=== PATIENT | female | born 1960 | race Hispanic/Latino ===

== ENCOUNTER 2020-01-27 12:29 | Inpatient (IN) | payer MEDICARE ==
[2020-01-27 12:59] LABS: BASOPHILS % (AUTO) 0.3 % (0.0-5.0); EOSINOPHILS % (AUTO) 0.1 % (0.0-8.0); LYMPHOCYTES % (AUTO) 5.6 % (21.0-51.0); MEAN CORPUSCULAR HEMOGLOBIN 34.8 pg (27.0-33.0); MEAN CORPUSCULAR HGB CONC 30.6 g/dL (32.0-36.0); MEAN CORPUSCULAR VOLUME 113.8 fL (79-99); MONOCYTES % (AUTO) 1.1 % (3.0-13.0); NEUTROPHILS % (AUTO) 92.6 % (40.0-77.0); NUCLEATED RED BLOOD CELLS 0.3 % (0.0-0.19); PLATELET COUNT (AUTO) 185 K/uL (130-400); RED BLOOD CELL COUNT(AUTO) 1.38 MIL/uL (4.00-5.50); WHITE BLOOD COUNT (AUTO) 8.8 K/uL (4.8-10.8)
[2020-01-27 13:06] LABS: HEMATOCRIT 15.7 % (36-48)
[2020-01-27] MEDS ORDERED: ALBUTEROL INHALER 90MCG/INH IH ONE (13:12)
[2020-01-27 13:14] LABS: ALBUMIN 1.8 g/dL (3.5-5.0); BILIRUBIN,TOTAL 1.2 mg/dL (0.2-1.0); CREATININE 5.3 mg/dL (0.5-1.5)
[2020-01-27 13:33] LABS: POTASSIUM 6.8 mmol/L (3.5-5.1)
[2020-01-27] MEDS ORDERED: CALCIUM GLUCONATE 1 GM/10 ML VIAL IV ONE (13:38)
[2020-01-27] MEDS ORDERED: SODIUM CHLORIDE 0.9% 100 ML IV ONE (13:39)
[2020-01-27] MEDS ORDERED: ALBUTEROL SULFATE 0.083% 2.5 MG/3 ML INH IH PRN (14:45)
[2020-01-27] MEDS ORDERED: ACETAMINOPHEN 325 MG TAB PO PRN (14:45)
[2020-01-27] MEDS ORDERED: DEXTROSE 50%-WATER 50 ML DISP.SYRIN IV PRN (15:00)
[2020-01-27] MEDS ORDERED: GLUCAGON 1MG KIT 1 MG ML IM PRN (15:00)
[2020-01-27] MEDS ORDERED: ALBUMIN (HUMAN) 25% 100 ML IV ONE (15:32)
[2020-01-27] MEDS ORDERED: ALBUMIN (HUMAN) 25% 0 ML IV ONE (15:37)
[2020-01-27 15:41] LABS: HEMOGLOBIN A1C 5.7 % (4.0-6.0)
[2020-01-27] MEDS ORDERED: SODIUM CHLORIDE 0.9% 50 ML IV ONE (15:49)
[2020-01-27] MEDS: INSULIN HUMULIN R 100 UNIT/ML 3ML SQ SCH ×2 (16:30→21:00)
[2020-01-27] MEDS ORDERED: EPOETIN ALFA 10,000 UNIT/ML VIAL IV NR (18:00)
[2020-01-27 18:11] LABS: BASOPHILS % (AUTO) 0.3 % (0.0-5.0); EOSINOPHILS % (AUTO) 0.2 % (0.0-8.0); LYMPHOCYTES % (AUTO) 5.2 % (21.0-51.0); MEAN CORPUSCULAR HGB CONC 34.3 g/dL (32.0-36.0); MEAN CORPUSCULAR VOLUME 96.2 fL (79-99); MONOCYTES % (AUTO) 3.8 % (3.0-13.0); NUCLEATED RED BLOOD CELLS 0.7 % (0.0-0.19); PLATELET COUNT (AUTO) 107 K/uL (130-400); RED BLOOD CELL COUNT(AUTO) 2.09 MIL/uL (4.00-5.50); RED CELL DISTRIBUTION WIDTH 21.9 % (11.0-15.5); WHITE BLOOD COUNT (AUTO) 6.1 K/uL (4.8-10.8)
[2020-01-27 18:19] LABS: HEMATOCRIT 20.1 % (36-48)
[2020-01-27 18:39] LABS: B-TYPE NATRIURETIC PEPTIDE 2430 pg/mL (0-100)
[2020-01-27] MEDS: FAMOTIDINE 20MG TAB 20 MG TAB PO SCH (21:10)
[2020-01-27 21:31] LABS: HEMATOCRIT 23.3 % (36-48)
--- NOTE | 2020-01-27 22:24 | NUR ---
Patient received from ED at start of shift, accompanied by staff to room 309. Patient assisted assisted to bed and made comfortable. Assessment and nursing data base completed. No acute distress at this time. Will continue to monitor.
[2020-01-28 03:57] VITALS: BP 87/56
[2020-01-28 04:51] LABS: HEMATOCRIT 22.6 % (36-48)
[2020-01-28] MEDS: INSULIN HUMULIN R 100 UNIT/ML 3ML SQ SCH ×2 (07:30→11:30)
[2020-01-28 08:14] VITALS: BP 89/53
[2020-01-28 09:07] LABS: HEMATOCRIT 24.7 % (36-48); MEAN CORPUSCULAR HEMOGLOBIN 33.1 pg (27.0-33.0); MEAN CORPUSCULAR HGB CONC 33.2 g/dL (32.0-36.0); MEAN CORPUSCULAR VOLUME 99.6 fL (79-99); NUCLEATED RED BLOOD CELLS 1.1 % (0.0-0.19); RED BLOOD CELL COUNT(AUTO) 2.48 MIL/uL (4.00-5.50); WHITE BLOOD COUNT (AUTO) 8.4 K/uL (4.8-10.8)
[2020-01-28 09:19] LABS: CREATININE 3.5 mg/dL (0.5-1.5)
[2020-01-28] MEDS ORDERED: ALBUMIN (HUMAN) 25% 50 ML IV SCH (09:30)
[2020-01-28 11:27] VITALS: BP 95/60
[2020-01-28] MEDS ORDERED: HEPARIN SODIUM 5000UNIT/ML 1ML VIAL SQ SCH (15:00)
[2020-01-28] MEDS ORDERED: ACETAMINOPHEN 325 MG TAB PO PRN (15:00)
[2020-01-28] MEDS ORDERED: ONDANSETRON HCL 4 MG/2 ML VIAL IVP PRN (15:00)
[2020-01-28 15:02] LABS: HEMATOCRIT 22.5 % (36-48)
[2020-01-28 16:17] VITALS: BP 85/52
--- NOTE | 2020-01-28 17:10 | NUR ---
CALL TO [facility] FOR DC PLANNING STATES PATIENT IS MOSTLY INDPENDETN BUT DOES USE A W/CHAIR IN THE HOMOE, HAS A PROVIDER 30 HRS WEEKLY, HAS A SHOWER CHAIR,HOME SAFE AND ACCESSIBLE, HAS BEEN ON HD X 12 YEARS, [facility] MWF; [facility] [employer]TS. CM TO FOLLOW. DISCUSSED PATIENT [place]ORY [place] [facility] [place] 'WAS TREATED BADLY THERY, HERE YOU ARE TREATING HER WELL, BUT ITS HER HCOICE TO GO OR STAY" AIDAN AUGUSTE DECLINED ENDOSCOPY LAST ADMIT CM TO FOLLOW Addendum: 01/28/20 at 1714 by LAURA RUSH RN CM Amended: Links added.
[2020-01-28] MEDS ORDERED: PEG 3350/NA SULF,BICARB,CL/KCL 4000 ML SOLN PO SCH (18:11)
[2020-01-28 20:35] VITALS: BP 95/59
[2020-01-28] MEDS ORDERED: FAMOTIDINE 20MG TAB 20 MG TAB PO SCH (21:00)
[2020-01-28] MEDS: FUROSEMIDE 10 MG/ML 10ML VIAL IVP SCH (21:00)
[2020-01-28 21:18] LABS: HEMATOCRIT 22.4 % (36-48)
[2020-01-28] MEDS ORDERED: FUROSEMIDE 10 MG/ML 2ML VIAL ONE (21:46)
[2020-01-28] MEDS: FAMOTIDINE 20MG TAB 20 MG TAB PO SCH (21:55)
[2020-01-28 23:29] VITALS: BP 96/67
[2020-01-29 03:57] VITALS: BP 96/54
--- NOTE | 2020-01-29 06:28 | NUR ---
received report from am nurse, assumed care, shift assessment done, 24 cc done, timed medication given, safety maintained, pt appreciative care provided, refused gi consult, possible dc today.
[2020-01-29 07:15] LABS: BASOPHILS % (AUTO) 1.5 % (0.0-5.0); HEMATOCRIT 23.3 % (36-48); LYMPHOCYTES % (AUTO) 12.6 % (21.0-51.0); MEAN CORPUSCULAR HEMOGLOBIN 32.8 pg (27.0-33.0); MEAN CORPUSCULAR HGB CONC 32.2 g/dL (32.0-36.0); MEAN CORPUSCULAR VOLUME 101.7 fL (79-99); MONOCYTES % (AUTO) 11.3 % (3.0-13.0); NEUTROPHILS % (AUTO) 70.3 % (40.0-77.0); NUCLEATED RED BLOOD CELLS 0.7 % (0.0-0.19); PLATELET COUNT (AUTO) 97 K/uL (130-400); RED BLOOD CELL COUNT(AUTO) 2.29 MIL/uL (4.00-5.50); RED CELL DISTRIBUTION WIDTH 25.5 % (11.0-15.5)
[2020-01-29 07:29] LABS: INR 1.14 (0.85-1.15); PROTHROMBIN TIME 12.2 SEC (9.6-11.6)
--- NOTE | 2020-01-29 07:30 | NUR ---
DISCHARGE pt states she is going home today,resting in bed denies discomfort
[2020-01-29 07:31] LABS: CREATININE 3.4 mg/dL (0.5-1.5); POTASSIUM 3.3 mmol/L (3.5-5.1)
[2020-01-29] MEDS ORDERED: POTASSIUM CHLORIDE 20 MEQ ERTAB PO SCH (08:45)
[2020-01-29 10:00] VITALS: BP 98/50
[2020-01-29] MEDS: FUROSEMIDE 10 MG/ML 10ML VIAL IVP SCH (10:24)
== END 2020-01-29 13:50 | disposition home or self-care (01) | DRG 377 ==
LOC: EDH 12:29 → EDHIP 14:31 → 3BH 20:19
PROVIDERS: ADMIT Hospitalist; ATTEND Hospitalist
PROC: 5A1D70Z Performance of Urinary Filtration, Intermittent, Less than 6 Hours Per Day (ICD-10-PCS; principal; 2020-01-27)
PROC: 30233N1 Transfusion of Nonautologous Red Blood Cells into Peripheral Vein, Percutaneous Approach (ICD-10-PCS; 2020-01-27)
PROC: 5A1D70Z Performance of Urinary Filtration, Intermittent, Less than 6 Hours Per Day (ICD-10-PCS; 2020-01-28)
DX: K92.2 Gastrointestinal hemorrhage, unspecified (principal); U07.1 COVID-19; N18.6 End stage renal disease; I50.42 Chronic combined systolic (congestive) and diastolic (congestive) heart failure; E87.1 Hypo-osmolality and hyponatremia; E87.5 Hyperkalemia; D64.9 Anemia, unspecified; F41.9 Anxiety disorder, unspecified; J45.909 Unspecified asthma, uncomplicated; I95.89 Other hypotension; R53.81 Other malaise; Z99.2 Dependence on renal dialysis; Z99.81 Dependence on supplemental oxygen
CPT/HCPCS: 36415; 36430; 71045; 80048; 80053; 82270; 82948; 83036; 83880; 85014; 85018; 85025; 85027; 85610; 86850; 86900; 86901; 86923; 87426; 90935; 93005; 99291; G0378; J0610; J0885; J1644; J1940; P9016; P9046; P9047; U0003